=== PATIENT | male | born 1985 | race African-American/Black ===

== ENCOUNTER 2017-01-01 12:47 | Emergency (ER) | payer OTHER ==
[2017-01-01] MEDS ORDERED: Sodium Chloride 0.9% 2,000 ML IV ONE (13:39)
--- NOTE | 2017-01-01 13:39 | EDM.PDOC ---
ED HPI GENERAL MEDICAL PROBLEM - General Chief Complaint: Gastrointestinal Problem Stated Complaint: DEHYDRATED Time Seen by Provider: 01/01/17 13:15 Source of Information: Reports: Patient History Limitations: Reports: No Limitations - History of Present Illness INITIAL COMMENTS - FREE TEXT/NARRATIVE: HISTORY AND PHYSICAL: History of present illness: [Patient comes to the emergency room complaining of exhaustion and dehydration. States that he has been working 6 days a week, sun up to sun down, as a lease purchase truck driver. He hasn't been taking lunch breaks or taking time to drink water. He feels that is under increased stress at work, and wants to leave his job, but isn't prepared to do so yet. He was prescribed anti-depressants by his PCP in [place] several months ago, which he thinks helped his overall stress level and mood, but decided to stop this medication. He was concerned that he was "too numb" while taking the medication, and didn't feel that he should be driving while he was taking a medication that made him feel that way. Denies fever and chills. No recent illnesses or infection. No chest pain, SOA or difficulty breathing. Denies any recent injuries or llnesses. Denies any pain. He otherwise feels well. ] Review of systems: As per history of present illness and below otherwise all systems reviewed and negative. Past medical history: As per history of present illness and as reviewed below otherwise noncontributory. Surgical history: As per history of present illness and as reviewed below otherwise noncontributory. Social history: No reported history of drug or alcohol abuse. Family history: As per history of present illness and as reviewed below otherwise noncontributory. Physical exam: Gen.: Well-developed well-nourished well-appearing black male in no acute distress. HEENT: Atraumatic, normocephalic. mucous membranes moist, throat clear, neck supple, nontender, trachea midline. No lymphadenopathy. Lungs: Clear to auscultation, breath sounds equal bilaterally, chest nontender. Heart: S1S2, regular rate and rhythm. No mumur. Abdomen: Soft, nondistended, nontender. Negative for masses, guarding or rebound. Negative for costovertebral tenderness. Pelvis: Stable nontender. Genitourinary: Deferred. Rectal: Deferred. Extremities: Atraumatic, no cyanosis or edema to feet or lower legs. negative for cords or calf pain. Neurovascular unremarkable. Neuro: Awake, alert, oriented. Motor and sensory unremarkable throughout. Exam nonfocal. Psych: Answers questions appropriately but affect is flat. Diagnostics: [CBC, CMP, UA] Therapeutics: [2 liters NS] Impression: [Dehydration] Plan: [Patient states that he feels improved following NS, would like to be discharged home. Recommend close follow up with his PCP. He is given a note stating that he was seen today in ER and is excused from work until January 04. Encouraged rest, push fluids. ] Definitive disposition and diagnosis as appropriate pending reevaluation and review of above. headache Pain Score (Numeric/FACES): 8 - Related Data Allergies Allergy/AdvReac Type Severity Reaction Status Date / Time NSAIDS (Non-Steroidal Allergy Other Verified 01/01/17 12:57 Anti-Inflamma Home Meds: Home Meds . [No Known Home Meds] 01/01/17 [History] Past Medical History HEENT History: Reports: None Cardiovascular History: Reports: None Respiratory History: Reports: None Gastrointestinal History: Reports: None Genitourinary History: Reports: None Musculoskeletal History: Reports: None Neurological History: Reports: None Psychiatric History: Reports: Anxiety Endocrine/Metabolic History: Reports: None Hematologic History: Reports: None Immunologic History: Reports: None Oncologic (Cancer) History: Reports: None Dermatologic History: Reports: None - Infectious Disease History Infectious Disease History: Reports: None - Past Surgical History Male Surgical History: Reports: Other (See Below) Other Male Surgeries/Procedures: h/o liver & kidney biopsy Social & Family History - Family History Family Medical History: Noncontributory - Tobacco Use Smoking Status *Q: Never Smoker - Caffeine Use Caffeine Use: Reports: Coffee - Recreational Drug Use Recreational Drug Use: No ED ROS GENERAL - Review of Systems Review Of Systems: ROS reveals no pertinent complaints other than HPI. ED EXAM, GI/ABD - Physical Exam Exam: See Below Course - Vital Signs Last Recorded V/S: Last Vital Signs Temp 97 F 01/01/17 12:57 Pulse 60 01/01/17 16:48 Resp 16 01/01/17 16:48 BP 132/86 01/01/17 16:48 Pulse Ox 99 01/01/17 16:48 - Orders/Labs/Meds Labs: Laboratory Tests 01/01/17 01/01/17 01/01/17 Range/Units 13:33 13:33 14:44 WBC 7.63 (4.0-11.0) K/uL RBC 5.27 (4.50-5.90) M/uL Hgb 14.5 (13.0-17.0) g/dL Hct 42.5 (38.0-50.0) % MCV 80.6 (80.0-98.0) fL MCH 27.5 (27.0-32.0) pg MCHC 34.1 (31.0-37.0) g/dL RDW Std Deviation 42.5 (28.0-62.0) fl RDW Coeff of Kaitlynn 15 (11.0-15.0) % Plt Count 191 (150-400) K/uL MPV 10.00 (7.40-12.00) fL Neut % (Auto) 51.1 (48.0-80.0) % Lymph % (Auto) 39.6 (16.0-40.0) % [place]christ % (Auto) 8.0 (0.0-15.0) % Eos % (Auto) 1.0 (0.0-7.0) % Baso % (Auto) 0.3 (0.0-1.5) % Neut # (Auto) 3.9 (1.4-5.7) K/uL Lymph # (Auto) 3.0 H (0.6-2.4) K/uL Gilchrist # (Auto) 0.6 (0.0-0.8) K/uL Eos # (Auto) 0.1 (0.0-0.7) K/uL Baso # (Auto) 0.0 (0.0-0.1) K/uL Nucleated RBC % 0.0 /100WBC Nucleated RBCs # 0 K/uL Sodium 140 (136-146) mmol/L Potassium 4.1 (3.5-5.1) mmol/L Chloride 106 (98-110) mmol/L Carbon Dioxide 25 (21-31) mmol/L BUN 16 (6.0-23.0) mg/dL Creatinine 1.2 (0.6-1.5) mg/dL Est Cr Clr Drug Dosing 88.38 mL/min Estimated GFR (MDRD) > 60.0 ml/min Glucose 88 (60-110) mg/dL Calcium 8.9 (8.8-10.8) mg/dL Total Bilirubin 0.6 (0.1-1.5) mg/dL AST 24 (5-40) IU/L ALT 18 (8-54) IU/L Alkaline Phosphatase 52 (40-150) Total Protein 8.1 H (6.0-8.0) g/dL Albumin 4.4 (3.5-5.0) g/dL Globulin 3.7 H (2.0-3.5) g/dL Albumin/Globulin Ratio 1.2 L (1.3-2.8) Urine Color YELLOW Urine Appearance CLEAR Urine pH 8.0 (5.0-8.0) Ur Specific [place] 1.015 (1.001-1.035) Urine Protein NEGATIVE (NEGATIVE) mg/dL Urine Glucose (UA) NEGATIVE (NEGATIVE) mg/dL Urine Ketones NEGATIVE (NEGATIVE) mg/dL Urine Occult Blood NEGATIVE (NEGATIVE) Urine Nitrite NEGATIVE (NEGATIVE) Urine Bilirubin NEGATIVE (NEGATIVE) Urine Urobilinogen 1.0 (<2.0) EU/dL Ur Leukocyte Esterase NEGATIVE (NEGATIVE) Urine RBC 0-2 (0-2/HPF) Urine WBC 0-2 (0-5/HPF) Ur Epithelial Cells RARE (NONE-FEW) Urine Bacteria RARE (NEGATIVE) Meds: Medications Discontinued Medications Generic Name Dose Route Start Last Admin Trade Name Freq PRN Reason Stop Dose Admin Sodium Chloride 2,000 mls @ 999 mls/hr 01/01/17 13:39 01/01/17 14:25 Normal Saline IV 01/01/17 15:39 500 mls/hr STAT ONE Infusion Departure - Departure Time of Disposition: 16:30 Disposition: Home, Self-Care 01 Condition: Good Clinical Impression: Dehydration - Discharge Information Instructions: Dehydration, Elderly, [id number] Referrals: PCP,None [Primary Care Provider] - Forms: ED Department Discharge Additional Instructions: The following information is given to patients seen in the emergency department who are being discharged to home. This information is to outline your options for follow-up care. We provide all patients seen in our emergency department with a follow-up referral. The need for follow-up, as well as the timing and circumstances, are variable depending upon the specifics of your emergency department visit. If you don't have a primary care physician on staff, we will provide you with a referral. We always advise you to contact your personal physician following an emergency department visit to inform them of the circumstance of the visit and for follow-up with them and/or the need for any referrals to a consulting specialist. The emergency department will also refer you to a specialist when appropriate. This referral assures that you have the opportunity for follow-up care with a specialist. All of these measure are taken in an effort to provide you with optimal care, which includes your follow-up. Under all circumstances we always encourage you to contact your private physician who remains a resource for coordinating your care. When calling for follow-up care, please make the office aware that this follow-up is from your recent emergency room visit. If for any reason you are refused follow-up, please contact the [facility] emergency department at and asked to speak to the emergency department charge nurse. [facility] [address] [place] [id number] Follow-up with your primary care provider at the clinic listed above in 48-72 hours. Push fluids, get plenty of rest. Return to ER as needed as discussed.
[2017-01-01 14:10] LABS: CHLORIDE,CL 106 mmol/L (98-110); SODIUM,NA 140 mmol/L (136-146)
[2017-01-01 17:45] VITALS: BP 132/86
== END 2017-01-01 16:48 | disposition home or self-care (01) ==
LOC: MW.ED 12:47
DX: E86.0 Dehydration (principal); Z88.8 Allergy status to other drugs, medicaments and biological substances
CPT/HCPCS: 36415; 80053; 81001; 85025; 96360; 96361; 99284; J7040; 99282